=== PATIENT | male | born 1965 ===

== ENCOUNTER 2018-05-13 22:30 | Emergency (ER) | payer MEDICAID ==
[2018-05-13 22:35] VITALS: RESP 16
[2018-05-13] MEDS ORDERED: Oxycodone/Acetaminophen 5/325 mg Tab PO ONE ×2 (23:10→23:50)
--- NOTE | 2018-05-13 23:15 | ED PDOC ---
Upper Extremity Pain/Injury Time Seen by Provider: 05/13/18 22:36 Chief Complaint (Nursing): Trauma Chief Complaint (Provider): left wrist injury History Per: Patient History/Exam Limitations: no limitations Onset/Duration Of Symptoms: Hrs (2) Current Symptoms Are (Timing): Still Present Additional Complaint(s): 52 y/o male presents to the ED for evaluation of left wrist injury sustained 1 hour prior to arrival. Patient states he was rushing to get ready for work and slipped at home, landed with most of his weight on left wrist. Patient reports pain and swelling to left wrist. Denies numbness/weakness left upper extremity. no medication taken for relief thus far. PMD: Dr. Jesus Frank [facility] Past Medical History Reviewed: Historical Data, Nursing Documentation, Vital Signs Vital Signs: Last Vital Signs Temp 98.3 F 05/13/18 22:32 Pulse 71 05/13/18 22:32 Resp 16 05/13/18 22:32 BP 160/88 H 05/13/18 22:32 Pulse Ox 100 05/13/18 22:32 - Surgical History Surgical History: No Surg Hx - Family History Family History: States: No Known Family Hx - Living Arrangements Living Arrangements: With Family - Home Medications Home Medications: Ambulatory Orders Medication Instructions Recorded Ibuprofen [Motrin Tab] 1 tab PO Q6 PRN #20 tab 05/14/18 oxyCODONE/Acetaminophen [Percocet 1 ea PO Q6 PRN #12 tab 05/14/18 5/325 mg Tab] - Allergies Allergies/Adverse Reactions: Allergies Allergy/AdvReac Type Severity Reaction Status Date / Time No Known Allergies Allergy Verified 05/13/18 22:32 Review of Systems ROS Statement: Except As Marked, All Systems Reviewed And Found Negative Musculoskeletal: Positive for: Hand Pain (left wrist) Physical Exam - Reviewed Nursing Documentation Reviewed: Yes Vital Signs Reviewed: Yes - Physical Exam Appears: Positive for: Well, Non-toxic, No Acute Distress Pulses-Radial (L): 2+ Pulses-Radial (R): 2+ Extremity: Positive for: Deformity ("fork" deformity dorsal left wrist, + tenderness radial aspect. Distal NV/motor intact. Cap refill <2 sec b/l UE) Neurologic/Psych: Positive for: Alert, Oriented (x3). Negative for: Motor/Sensory Deficits - ECG O2 Sat by Pulse Oximetry: 100 - Other Rad xray left wrist X-Ray: Viewed By Me X-Ray Interpretation: +displaced radial head fracture - Progress ED Course And Treament: Percocet PO, xray's Left upper extremity placed in finger trap Dr. Lantigua at bedside, IV versed given counter weights slowly applied with immediate improvement of bone alignment Post-reduction films confirm improved alignment Patient placed in sugar tong splint/sling NV intact post splint application 3:45 Patient awake, alert, oriented x3. States he is feeling better. Pain improved Patient educated on findings, discharged with rx Ibuprofen, Percocet Advised Ortho follow up BERNIE Return precautions given Disposition - Clinical Impression Clinical Impression: Wrist fracture - Patient ED Disposition Is Patient to be Admitted: No Counseled Patient/Family Regarding: Studies Performed, Diagnosis, Need For Followup, Rx Given - Disposition Referrals: Lukasz Jade MD [Staff Provider] - [facility] [Outside] Disposition: Routine/Home Disposition Time: 03:45 Condition: IMPROVED Prescriptions: Ibuprofen [Motrin Tab] 1 tab PO Q6 PRN #20 tab PRN Reason: Pain, Moderate (4-7) oxyCODONE/Acetaminophen [Percocet 5/325 mg Tab] 1 ea PO Q6 PRN #12 tab PRN Reason: Pain, Severe (8-10) Instructions: Wrist Fracture (DC)
[2018-05-13] MEDS ORDERED: Midazolam 2 MG/2 ML VIAL IV ONE (23:50)
[2018-05-14] MEDS ORDERED: Midazolam 2 MG/2 ML VIAL ONE (00:35)
[2018-05-14 04:08] VITALS: BP 133/81; PULSE 77; TEMP 98.1; O2SAT 96
--- NOTE | 2018-05-14 08:27 | RAD ---
Date of service: 05/14/2018 PROCEDURE: Left Wrist Radiographs. HISTORY: post reduction COMPARISON: 05/13/2018 FINDINGS: BONES: Prior comminuted fracture distal radial metaphysis and epiphyseal is-now reduced to normal anatomical alignment. Radiocarpal joint extension-not excluded. Minimally displaced ulnar styloid fracture fragment as before. JOINTS: Radiocarpal joint space narrowing. SOFT TISSUES: Normal. OTHER FINDINGS: None. IMPRESSION: Interval reduced fracture as above.
--- NOTE | 2018-05-14 08:28 | RAD ---
Date of service: 05/13/2018 PROCEDURE: Left Wrist Radiographs. HISTORY: fall COMPARISON: None. FINDINGS: BONES: Comminuted distal radial metaphyseal-epiphyseal fracture with impaction and volar apical angulation fracture fragments projecting between the radial and ulna. Extension of the radial fracture into the radiocarpal joint-possible Separate 3 mm displaced ulnar styloid fracture fragment JOINTS: p.o. Carpal intrinsic joint space narrowing. SOFT TISSUES: Surrounding soft tissue swelling OTHER FINDINGS: None. IMPRESSION: Displaced comminuted fracture as above
--- NOTE | 2018-05-14 08:31 | RAD ---
PROCEDURE: Left Hand Radiographs. HISTORY: fall COMPARISON: None. FINDINGS: BONES: Comminuted and impacted distal radial fracture and a small displaced ulnar styloid fracture reported on same-day left wrist x-ray report. No additional carpal more distal metacarpal phalangeal fractures dislocations noted. JOINTS: Minimal distal interphalangeal joint osteoarthritic changes. SOFT TISSUES: Normal. OTHER FINDINGS: None. IMPRESSION: Distal radial and ulnar styloid fractures-detailed on same-day left wrist x-ray report No carpal, metacarpal or phalangeal fractures or dislocations noted.
== END 2018-05-14 04:25 | disposition home or self-care (01) ==
LOC: MERGE 22:30 → H.ER 22:30
DX: S52.532A Colles' fracture of left radius, initial encounter for closed fracture (principal); W19.XXXA Unspecified fall, initial encounter; Y92.89 Other specified places as the place of occurrence of the external cause
CPT/HCPCS: 29125; 73110; 73130; 99285; J2250